=== PATIENT | female | born 1990 | race Asian ===

== ENCOUNTER 2021-10-11 23:48 | Emergency (ER) | payer OTHER ==
[~2021-10-11] VITALS: Ht 162.6 cm; Wt 63.0 kg
[~2021-10-11 23:48] MED LIST: ACCUPRIL5 MG PO; IBUPROFEN600 MG PO; LOW-OGESTREL PO; PRENATA3 PO
[2021-10-12 01:32] VITALS: BP 118/73
[2021-10-12 01:55] LABS: URINE BILIRUBIN - DIPSTICK NEGATIVE (NEGATIVE); URINE BLOOD DIPSTICK SMALL (NEGATIVE); URINE COLOR YELLOW; URINE GLUCOSE - DIPSTICK NEGATIVE (NEGATIVE); URINE KETONE NEGATIVE (NEGATIVE)
[2021-10-12 01:55] LABS: HEMATOCRIT 35.7 % (37.0-47.0); HEMOGLOBIN 11.9 g/dl (12.0-16.0); IMMATURE GRANULOCYTES 0.5 % (0.0-5.0); MEAN CELL VOLUME 91.3 fL CALC (80.0-100.0); MEAN CORPUSCULAR HGB 30.4 pG CALC (26.0-32.0); MEAN CORPUSCULAR HGB CONC 33.3 g/dL CAL (32.0-36.0); NEUT# 8.39 thou/uL (2.00-7.15); RED BLOOD COUNT 3.91 mill/uL (4.20-5.60)
[2021-10-12 01:56] LABS: URINE LEUK ESTERASE LARGE (NEGATIVE); URINE NITRITE - DIPSTICK NEGATIVE (Negative)
[2021-10-12 02:00] VITALS: BP 109/58
[2021-10-12 02:09] LABS: ALBUMIN 3.9 g/dL (3.2-5.0); ALKALINE PHOSPHATASE 83 u/l (38-126); AMYLASE 74 u/l (30-110); ANION GAP 14 (6-22 (CALC)); BILIRUBIN, TOTAL 0.4 mg/dL (0.0-1.4); BUN 8 mg/dL (7-17); BUN/CREATININE RATIO 10 (12-20 (CALC)); CARBON DIOXIDE 24 mmol/l (22-30); CHLORIDE 101 mmol/l (95-108); CREATININE 0.8 mg/dL (0.5-1.0); GFR FOR AFR.AMER. > 60 ML/MIN (>=60 (CALC)); GFR OTHER RACES > 60 ML/MIN (>=60 (CALC)); LIPASE 43 u/l (23-300); POTASSIUM 3.6 mmol/l (3.5-5.1); SGOT/AST 26 u/l (14-36); SODIUM 135 mmol/l (137-146); TOTAL PROTEIN 7.6 g/dL (6.3-8.2)
[2021-10-12 02:12] LABS: URINE BACTERIA MODERATE hpf; URINE EPITHELIAL CELLS MODERATE EPI/hpf (0-FEW); URINE PROTEIN - DIPSTICK NEGATIVE (NEG-TRACE); URINE WBC >100 WBC/hpf (0-5)
[2021-10-12 02:30] VITALS: BP 104/73
[2021-10-12 03:00] VITALS: BP 112/63
[2021-10-12] MEDS ORDERED: PYRIDIUM200 MG PO (03:08)
[2021-10-12] MEDS ORDERED: KEFLEX500 MG PO (03:08)
[2021-10-12 03:23] VITALS: BP 112/63
== END 2021-10-12 03:32 | disposition home or self-care (01) | DRG 690 ==
LOC: ED 23:48
PROVIDERS: Emergency Medicine
DX: N39.0 Urinary tract infection, site not specified (principal); B96.20 Unspecified Escherichia coli [E. coli] as the cause of diseases classified elsewhere; Z20.822 Contact with and (suspected) exposure to COVID-19
CPT/HCPCS: Q9967